=== PATIENT | male | born 1995 | race Caucasian/White ===

== ENCOUNTER 2018-03-27 10:24 | Outpatient (CLI) | payer BC | END 2018-03-27 10:25 | disposition home or self-care (01) | LOC: CTENTCT 10:24 | PROVIDERS: ATTEND Otolaryngology Plastic Surgery within the Head & Neck | DX: J01.91 Acute recurrent sinusitis, unspecified (principal) | CPT/HCPCS: 70486 ==

== ENCOUNTER 2018-04-12 07:17 | Day surgery (SDC) | payer BC ==
[2018-04-11 15:36] VITALS: BMI 26.4
[2018-04-12] MEDS ORDERED: Oxymetazoline HCl 0.05% ( 15 ML ) ONE ×3 (08:00→08:29)
[2018-04-12] MEDS ORDERED: Lidocaine 1% w/Epinephrine 1:100K 30 ML VIAL ONE (08:29)
[2018-04-12] MEDS ORDERED: methylPREDNISolone Acetate 40 mg/ml Vial ONE (08:31)
[2018-04-12] MEDS ORDERED: Fentanyl 250 MCG/5 ML VIAL ONE (08:31)
[2018-04-12] MEDS ORDERED: Fentanyl 100 MCG/2 ML VIAL ONE (09:48)
[2018-04-12] MEDS ORDERED: HYDROcodone/Acetaminophen 5/325 mg Tablet ONE (10:42)
--- NOTE | 2018-04-12 12:42 | OP ---
DATE OF PROCEDURE: 04/12/2018 PREOPERATIVE DIAGNOSES: 1. Allergic fungal sinusitis. 2. Nasal polyposis. 3. Chronic rhinosinusitis. 4. Bilateral inferior turbinate hypertrophy. 5. Nasal septal deviation. POSTOPERATIVE DIAGNOSES: 1. Allergic fungal sinusitis. 2. Nasal polyposis. 3. Chronic rhinosinusitis. 4. Bilateral inferior turbinate hypertrophy. 5. Nasal septal deviation. PROCEDURES: 1. Bilateral endoscopic sinus surgery, total ethmoidectomies. 2. Bilateral endoscopic sinus surgery, maxillary antrostomies with removal of tissue. 3. Bilateral endoscopic sinus surgery, frontal sinusotomy with removal of tissue. 4. Bilateral endoscopic sinus surgery, sphenoidotomies. 5. Bilateral inferior turbinate submucous resection. 6. Intraoperative landmark cranial base navigation CT interpretation and setup. SURGEON: Vincent Hutson M.D. ESTIMATED BLOOD LOSS: 50 mL. COMPLICATIONS: None. ANESTHESIA: GETA. PROCEDURE: The patient was taken to the operating room and placed supine on the table. General endo tracheal anesthesia was obtained by the Anesthesia staff. Tube was secured in the left lower lip. T he patient was placed in the beach chair position. Following this the patient was prepped and draped in standard surgical fashion. The landmark system was then setup, calibrated and was noted to be wi thin 0.1 mm of accuracy. Following this, the 30-degree scope was advanced into the nasal cavity. Th ere was mild septal deviation present bilaterally. Inferior turbinates were large, thick yellow mucu s and allergic mucin was noticed in the right middle meatus, 1% lidocaine with 1:100,000 epinephrine was injected into the inferior turbinates and the middle turbinate and lateral nasal wall bilaterally . Following this, the [place] elevator was used to gently medialize the middle turbinates bilaterally. The uncinate process was anteriorly fractured using the ball ended probe. Following this, the stra ight microdebrider were used to remove the uncinate process bilaterally. On the right side, the late ral portion of the middle turbinate contained large inocente bullosa which was present. A small incisi on vertically was made with a sickle knife into the right middle turbinate and the lateral wall of th e middle turbinate inocente bullosa was resected using the straight microdebrider. Following this, upo n entrance of the right maxillary sinus and right middle meatus area, copious amounts of allergic fun gal debris and nasal polyps were encountered. These were removed using straight suction and a straig ht true cut microdebrider blade. Following this, the maxillary ostia was widened bilaterally. Follo wing this, the ethmoidal bulla was identified and was punctured on its medial and inferior aspect kandy aterally and was removed using the microdebrider. Following this, the grand lamella was identified a nd was punctured in the posterior ethmoidal cells bilaterally. Working from posterior to anterior, t he ethmoidal cells were opened. On the right multiple polyps and thick allergic fungal debris was en countered and was removed. Following this, the sphenoid sinuses were approached staying medial to th e middle turbinate where the superior turbinate was identified. Staying just medial and inferior to the superior turbinate attachment to the posterior nasal wall, sphenoidotomies were created with an i mage-guided [place] tip suction bilaterally. Following this, the sphenoidotomies were then widened m edially and inferiorly using the straight microdebrider. Following this, the 45 degree scope and the upbiting curved image guide and microdebrider were then used to further open the frontal sinus cell bilaterally. On the right side, thick mucus and inflamed tissue was removed. Following this, inferi or turbinates were punctured on the anterior inferior aspect and submucosal resection was performed o f the anterior inferior aspect of the inferior turbinates bilaterally. Following this, the nasal cav ity was copiously irrigated. MeroPacks were placed in the middle meatus. The patient tolerated proc edure well.
== END 2018-04-12 12:15 | disposition home or self-care (01) ==
LOC: SDC 07:17
PROVIDERS: ATTEND Otolaryngology Plastic Surgery within the Head & Neck
PROC: 09TU8ZZ Resection of Right Ethmoid Sinus, Via Natural or Artificial Opening Endoscopic (ICD-10-PCS; principal; 2018-04-12)
PROC: 09BL7ZZ Excision of Nasal Turbinate, Via Natural or Artificial Opening (ICD-10-PCS; principal; 2018-04-12)
PROC: 09TV8ZZ Resection of Left Ethmoid Sinus, Via Natural or Artificial Opening Endoscopic (ICD-10-PCS; principal; 2018-04-12)
PROC: 8E09XBZ Computer Assisted Procedure of Head and Neck Region (ICD-10-PCS; principal; 2018-04-12)
DX: J32.4 Chronic pansinusitis (principal); J33.0 Polyp of nasal cavity; J34.3 Hypertrophy of nasal turbinates; J34.89 Other specified disorders of nose and nasal sinuses; J30.1 Allergic rhinitis due to pollen; J30.89 Other allergic rhinitis; J34.2 Deviated nasal septum
CPT/HCPCS: 87070; 87205; 96374; J1030; J2001; J3010; J7620